=== PATIENT | male | born 1960 | race African-American/Black ===

== ENCOUNTER 2021-02-03 11:47 | Emergency (ER) | payer BC ==
[~2021-02-03] VITALS: Ht 180.3 cm; Wt 88.0 kg
--- NOTE | 2021-02-03 12:26 | NUR ---
at bedside for assessment
--- NOTE | 2021-02-03 12:35 | NUR ---
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
[2021-02-03] MEDS ORDERED: IBUPROFEN 800 MG TABLET PO ONE (13:15)
[2021-02-03] MEDS ORDERED: IBUPROFEN 800 MG TABLET ONE (13:19)
--- NOTE | 2021-02-03 13:31 | NUR ---
Soft cervical collar applied to neck, Patient discharged to home in stable condition. Written and verbal after care instructions given. Able to ambulate with steady gait, took all belongings. Patient verbalizes understanding of instructions. Stressed follow up or return to ER for worsening s/s.
[2021-02-03 13:32] VITALS: BP 124/77
== END 2021-02-03 13:34 | disposition home or self-care (01) ==
LOC: ER 11:47
DX: S16.1XXA Strain of muscle, fascia and tendon at neck level, initial encounter (principal); V47.6XXA Car passenger injured in collision with fixed or stationary object in traffic accident, initial encounter; Y93.89 Activity, other specified; Y92.414 Local residential or business street as the place of occurrence of the external cause; M79.645 Pain in left finger(s); F10.20 Alcohol dependence, uncomplicated; F14.10 Cocaine abuse, uncomplicated
CPT/HCPCS: 72100; 73140; A4663